=== PATIENT | male | born 2005 | race Caucasian/White ===

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

== ENCOUNTER 2023-08-29 00:45 | Emergency (ER) | payer OTHER, SELFPAY ==
[2023-08-29 00:46] VITALS: BP 158/85; PULSE 78; RESP 18; TEMP 36.7; O2SAT 100
[2023-08-29 01:38] LABS: Influenza A QL RT-PCR Negative (Negative); Influenza B QL RT-PCR Negative (Negative); RSV RNA, RT-PCR Negative (Negative); SARS-CoV-2 RNA PCR Positive (Negative)
--- NOTE | 2023-08-29 02:12 | ED.GENADULT ---
HPI - General Adult General Chief complaint: Upper Respiratory Infection Stated complaint: body aches Time Seen by Provider: 08/29/23 02:07 History of Present Illness HPI narrative: Patient is a 18-year-old gentleman who presents emergency department chief complaint of body aches cough runny nose patient states symptoms onset and on Friday. The patient reports that the symptoms are not improved by anything Related Data Home Medications Medication Instructions Recorded Confirmed methylphenidate HCl 54 mg 54 mg PO DAILY 07/08/20 07/25/20 tablet,extended release 24 hr (Concerta) Allergies Allergy/AdvReac Type Severity Reaction Status Date / Time No Known Allergies Allergy Verified 05/14/21 09:00 Review of Systems Review of Systems: A 10 system review of systems was completed on the patient and is negative except for what is stated in the HPI. Nursing and ancillary documentation was reviewed. [facility] Past Medical History Medical History ADHD Surgical History Surgical History History of laparoscopic appendectomy 07/08/2020 Family History Family History Grandparent Congestive heart failure Cerebrovascular accident Social History Social History Smoking status: Never smoker Second hand tobacco smoke exposure: No Alcohol intake: never Substance use: never Substance use type: does not use Gender identity (if verbalized by the patient): Male Spiritual care concerns: No Exam Narrative: GENERAL: Well-appearing, well-nourished, and in no acute distress. HEAD: Normocephalic, atraumatic. EYES: PERRLA and EOMI. ENT: Nares clear, no rhinorrhea or epistaxis. Mucous membranes moist. NECK: Supple. CHEST: Clear to auscultation. No respiratory distress. HEART: Regular rate and rhythm. No murmur heard. Normal peripheral pulses. ABDOMEN: Soft, nontender, nondistended, normal active bowel sounds. EXTREMITIES: Normal range of motion. No edema. SKIN: Warm, dry, no rash. NEURO: No focal deficits. Alert and oriented x3. PSYCH: Normal mood and affect. Course Vital Signs Vital signs: Vital Signs Temperature 36.7 C 08/29/23 00:46 Pulse Rate 78 08/29/23 00:46 Respiratory Rate 18 08/29/23 00:46 Blood Pressure 158/85 H 08/29/23 00:46 Pulse Oximetry 100 08/29/23 00:46 Oxygen Delivery Room Air 08/29/23 00:46 Temperature 36.7 C 08/29/23 00:46 Pulse Rate 78 08/29/23 00:46 Respiratory Rate 18 08/29/23 00:46 Blood Pressure 158/85 H 08/29/23 00:46 Pulse Oximetry 100 08/29/23 00:46 Oxygen Delivery Room Air 08/29/23 01:22 Medical Decision Making MDM Narrative Medical decision making narrative: Differential diagnosis includes viral syndrome, upper respiratory infection, influenza, RSV, COVID COVID-19 test positive Patient shows no signs of hypoxia no signs of tachypnea It was discussed with the patient whether to start Paxil 0 bitter not the patient has opted to start Paxil lobe with therapy the patient has no contraindications of Paxil 0 bid. The patient will also be given a prescription for Tessalon Perles. Vital Signs Vital Signs: Vital Signs Temperature 36.7 C 08/29/23 00:46 Pulse Rate 78 08/29/23 00:46 Respiratory Rate 18 08/29/23 00:46 Blood Pressure 158/85 H 08/29/23 00:46 Pulse Oximetry 100 08/29/23 00:46 Oxygen Delivery Room Air 08/29/23 00:46 Temperature 36.7 C 08/29/23 00:46 Pulse Rate 78 08/29/23 00:46 Respiratory Rate 18 08/29/23 00:46 Blood Pressure 158/85 H 08/29/23 00:46 Pulse Oximetry 100 08/29/23 00:46 Oxygen Delivery Room Air 08/29/23 01:22 Lab Data Labs: Lab Results 08/29/23 Range/Units 00:51 Influenza A (RT
[2023-08-29 03:08] VITALS: BP 145/95; PULSE 86; RESP 20; O2SAT 100
== END 2023-08-29 03:10 | disposition home or self-care (01) ==
LOC: ANHED 02:27
PROVIDERS: Emergency Provider Emergency Medicine; PCP Pediatrics
DX: U07.1 COVID-19 (principal); J06.9 Acute upper respiratory infection, unspecified; F90.9 Attention-deficit hyperactivity disorder, unspecified type
CPT/HCPCS: 87637; 99283